=== PATIENT | female | born 1945 | race Caucasian/White ===

== ENCOUNTER 2024-07-21 08:20 | Emergency (ER) | payer OTHER, SELFPAY ==
[2024-07-21] VITALS (7 sets, daily range): BP systolic 132–165; BP diastolic 51–77; PULSE 56–119; RESP 16; TEMP 36.3; O2SAT 100
--- NOTE | 2024-07-21 09:02 | ECG_ITS ---
Test Date: 2024-07-21 08:58:26 Measurements Intervals Mcguffey Rate: 94 P: 58 MD: 199 QRS: -29 QRSD: 82 T: 66 QT: 349 QTc: 437 Interpretive Statements SINUS RHYTHM BORDERLINE ST-T WAVE ABNORMALITY- HIGH LATERAL LEADS BASELINE ARTIFACT- I, II, AVR, AVL, AVF BORDERLINE ECG No previous ECG available for comparison Electronically Signed On 07-21-2024 11:17:25 CDT by Lonnie Blevins D.O.
--- NOTE | 2024-07-21 09:09 | ED.GENADULT ---
HPI - General Adult General Chief complaint: Dizziness Stated complaint: Dizziness,Passout Source: patient Mode of arrival: ambulatory Limitations: no limitations History of Present Illness HPI narrative: Patient presents for evaluation of sick symptoms. She indicates over the last 4 days she has experienced rhinorrhea, cough, nausea, constipation and small amounts of diarrhea. Today she felt lightheaded and as though she may pass out. Her daughter brought her in for further evaluation. No fever, chills, abdominal pain, shortness of breath, chest pain. No recent sick contacts to her knowledge. She is diabetic, administering 24 units semglee in the morning and 5 units in the evening. She is also on SSI. Home blood sugars have been in 110-120 range Related Data Home Medications Medication Instructions Recorded Confirmed atorvastatin 40 mg tablet 40 mg PO DAILY 07/21/24 07/21/24 blood sugar diagnostic (Contour 07/21/24 07/21/24 Next Test Strips) blood sugar diagnostic (Contour 07/21/24 07/21/24 Next Test Strips) chlorthalidone 25 mg tablet 25 mg PO DAILY 07/21/24 07/21/24 insulin glargine-yfgn 100 unit/mL 5 unit subcut QPM 07/21/24 07/21/24 (3 mL) subcutaneous pen (Semglee (insulin glargine-yfgn) Pen) insulin glargine-yfgn 100 unit/mL 24 unit subcut QAM 07/21/24 07/21/24 (3 mL) subcutaneous pen (Semglee (insulin glargine-yfgn) Pen) insulin regular human 100 unit/mL 1 sliding scale dose subcut TID 07/21/24 07/21/24 injection solution (Novolin R Regular U-100 Insulin) lisinopril 20 2 tablet PO DAILY 07/21/24 07/21/24 mg-hydrochlorothiazide 25 mg tablet propranolol 20 mg tablet 20 mg PO DAILY 07/21/24 07/21/24 Allergies Allergy/AdvReac Type Severity Reaction Status Date / Time No Known Allergies Allergy Verified 07/21/24 08:36 Review of Systems Review of Systems: CONSTITUTIONAL: Denies fever, chills, or sweats. EYES: Denies visual changes, redness, or discharge. ENT: Reports rhinorrhea. Denies congestion, sore throat, or otalgia. CARDIOVASCULAR: Denies chest pain, palpitations, or edema. RESPIRATORY: Reports cough. Denies SOB. GASTROINTESTINAL: Reports nausea, constipation, diarrhea. Denies vomiting or abdominal pain GENITOURINARY: Denies dysuria or hematuria. SKIN: Denies rash or itching. MUSCULOSKELETAL: Denies back pain, joint pain, or myalgia. NEUROLOGIC: Reports dizziness, lightheadedness and sensation that she may pass out earlier. PSYCHIATRIC: Denies anxiety or depression. [facility] Past Medical History Medical History (Updated 07/21/24 @ 10:13 by Agapito Minaya, LUANN, ) Diabetes Hypertension Surgical History Surgical History No pertinent past surgical history Family History Family History Mother Family history non-contributory Social History Social History Smoking status: Never smoker Substance use: never Living arrangements: alone Gender identity (if verbalized by the patient): Female Sexual Orientation (if Verbalized by the Patient): Straight or Heterosexual Spiritual care concerns: No Exam Narrative: GENERAL: Well-appearing, well-nourished, and in no acute distress. HEAD: Normocephalic, atraumatic. EYES: PERRLA and EOMI. ENT: Nares clear, no rhinorrhea or epistaxis. Mucous membranes moist. Oropharynx without tonsillar hypertrophy exudate or other lesions. Bilateral TMs pearly stephenson nonbulging NECK: Supple. No adenopathy or masses. No carotid bruits or JVD CHEST: Clear to auscultation. No respiratory distress. No wheezes rales or rhonchi HEART: Regular rate and rhythm. No murmur heard. Normal peripheral pulses. ABDOMEN: Soft, nontender, nondistended, normal active bowel sounds. EXTREMITIES: Normal range of motion. No edema. SKIN: Warm, dry, no rash. LANA
--- NOTE | 2024-07-21 10:00 | PC.NURSE ---
PT HAS DRANK 2 BOTTLES OF WATER AND HAS HAD 1 EPISODE OF DIARRHEA STOOL SINCE ARRIVAL. REPORTS SHE FEELS BETTER AFTER WATER CONSUMPTION. REPEAT ORTHOSTATICS
== END 2024-07-21 10:15 | disposition home or self-care (01) ==
PROVIDERS: Emergency Provider Nurse Practitioner
DX: U07.1 COVID-19 (principal); E86.0 Dehydration; E11.9 Type 2 diabetes mellitus without complications; Z79.4 Long term (current) use of insulin; I10 Essential (primary) hypertension
CPT/HCPCS: 87426; 93005; 99213; G0463

== ENCOUNTER 2025-05-28 15:53 | Outpatient (CLI) | payer OTHER, SELFPAY ==
--- OUTSIDE RECORDS SUMMARY | 2025-05-28 15:57 | XMS_ITS | Referral Summary ---
Author Organization [facility] Address [address] [place] [address] Care Team Providers Care Community Outreach Specialist Name Role Phone No, Physician Primary Care Provider [phone] Patel Johnson MD Unavailable [phone] Allergies No known active allergies Medications amLODIPine (NORVASC) 10 mg tablet 09/28/2021 Active ascorbic acid (ascorbic acid) 500 mg tablet,chewable Take 1,000 mg by mouth daily Active atorvastatin (LIPITOR) 40 mg tablet 11/11/2021 Active calcium carbonate-vitami n D3 1,250mg (500mg elemental) - 5 mcg (200 units) per tablet Take 1 tablet by mouth 2 times daily Active glipiZIDE (GLUCOTROL) 5 mg tablet 11/11/2021 Active lisinopriL (PRINIVIL,ZESTRI L) 40 mg tablet 11/11/2021 Act sera propranoloL (INDERAL) 20 mg tablet 11/15/2021 Active Janumet 50-1,000 mg per tablet 11/11/2021 Activ e aspirin 81 mg capsule Take 81 mg by mouth daily Active Active Problems Problem Noted Date Diagnosed Date Acute parotitis 12/13/2021 Assessment & Plan (12/13/2021 3:19 PM RELISH MAKER): Start Keflex 500 mg twice daily with a meal for 7 days Continue lemon drops and increase fluid intake to 50 ounces of caffeine free and soda free fluid daily Have Dental evaluation Warm compresses to left side of face Consider MRI scan of Right 2 cm lateral to the maxilla mass Social History Tobacco Use Types Packs/Day Years Used Date Smoking Tobacco: Never Smokeless Tobacco: Never Comments No Sex and Gender Information Value Date Recorded Sex Assigned at Not on file Legal Sex Female 9:20 AM RELISH MAKER Gender Identity Not on file Sexual Orientation Not on file Last Filed Vital Signs Vital Sign Reading Time Taken Comments Blood Pressure 162/85 12/13/2021 2:41 PM RELISH MAKER Pulse 70 12/13/2021 2:41 PM RELISH MAKER Temperature 36.1 C (96.9 F) 12/13/2021 2:41 PM RELISH MAKER Respiratory Rate - - Oxygen Saturation - - Inhaled Oxygen Concentration - - Weight 60.8 kg (134 lb) 12/13/2021 2:41 PM RELISH MAKER Height 154.9 cm (5' 1) 12/13/2021 2:41 PM RELISH MAKER Body Mass Index 25.32 12/13/2021 2:41 PM RELISH MAKER Plan of Treatment Not on file Insurance [id number] [place] [address] HEALTHCARE [facility] Care Teams Community Outreach Specialist Relationship Specialty Start Date End Date No, Physician PCP - General 09/20/24 Patel Johnson MD 09/20/24
--- OUTSIDE RECORDS SUMMARY | 2025-05-28 15:57 | XMS_ITS | Clinical Summary ---
Author Organization [facility] Address [address] [place] [address] Phone Care Team Providers Care Senior Accounting Specialist Name Role Phone Patel Johnson MD Primary Care Provider [phone] Allergies No known active allergies Medications AMLODIPINE BESYLATE PO Active GLIMEPIRIDE PO Activ e METOPROLOL TARTRATE PO Active ASPIRIN PO Active CALCIUM-VITAMIN D PO Active pravastatin (PRAVACHOL) 40 MG Tablet TAKE ONE TABLET BY MOUTH ONCE DAILY. 90 Tab 1 10/28/2015 Active lisinopril (PRINIVIL, ZESTRIL) 40 MG Tablet TAKE ONE TABLET BY MOUTH ONCE DAILY. 90 Tab 1 10/28/2015 Active JANUMET 50-1000 MG Tablet TAKE ONE TABLET BY MOUTH TWICE DAILY. 180 Tab 1 10/28/2015 Active Active Problems Problem Noted Date Diagnosed Date HTN (hypertension) High cholesterol DM2 (diabetes mellitus, type 2) Immunizations Immunization Administration Dates Next Due Influenza Vaccine greater than 3 yrs 11/20/2013 Pneumococcal Vaccine Adult - 23 Valent 4 Social History Tobacco Use Types Packs/Day Years Used Date Smoking Tobacco: Never Assessed Comments No Sex and Gender Information Value Date Recorded Sex Assigned at Not on file Legal Sex Female 10:15 PM CDT Gender Identity Not on file Sexual Orientation Not on file Last Filed Vital Signs Vital Sign Reading Time Taken Comments Blood Pressure 160/41 09/27/2024 8:45 AM CUTTING INSPECTOR Pulse 54 09/27/2024 8:59 AM CUTTING INSPECTOR Temperature 36.4 C (97.6 F) 09/27/2024 8:38 AM CUTTING INSPECTOR Respiratory Rate 16 09/27/2024 8:59 AM CUTTING INSPECTOR Oxygen Saturation 100% 09/27/2024 8:59 AM CUTTING INSPECTOR Inhaled Oxygen Concentration - - Weight 61 kg (134 lb 7.7 oz) 09/27/2024 8:38 AM CUTTING INSPECTOR Height 154.9 cm (5' 1) 09/27/2024 8:55 AM CUTTING INSPECTOR Body Mass Index 25.41 09/27/2024 8:38 AM CUTTING INSPECTOR Plan of Treatment Health Maintenance Due Date Last Done Comments Diabetes: Eye Exam 1945 Diabetes: Foot Exam 1945 Hepatitis C Virus (HCV) Screening 1944 Diabetes: Nephropathy Screening 1962 Zoster Immunization (1 of 2) 1994 Diabetes: Hemoglobin A1c 03/05/2014 09/04/2013 Pneumococcal Immunization (50+ years) (2 of 2 - PCV) 11/20/2014 11/20/2013, 04/07/2010 DEXA Bone Density 09/18/2015 09/18/2013 Respiratory Syncytial Virus (RSV) Immunization (Adult) (1 - 1-dose 75+ series) 2019 SARS-COV-2 Immunization ( - season) 2024 04/23/2021, 04/02/2021 Influenza Immunization (#1) 07/21/202509/20, 08/26/2020, 08/11/2015, Additional history exists Pneumococcal Immunization Combined Discontinued 11/20/2013, 04/07/2010 DTaP/Tdap/Td Immunization Discontinued 08/12/2015 TdaP Immunization Completed 08/12/2015 Hepatitis B Immunization Aged Out No longer eligible based on patient's age to complete this topic Human Papillomavirus (HPV) Immunization Aged Out No longer eligible based on patient's age to complete this topic Meningococcal Immunization (ACWY) Aged Out No longer eligible based on patient's age to complete this topic Rotavirus Immunization Aged Out No lo nger eligible based on patient's age to complete this topic Insurance MEDICARE [employer] Care Teams Senior Accounting Specialist Relationship Specialty Start Date End Date Patel Johnson MD [address] [place] [address] PCP - General Internal Medicine 09/27/24
--- OUTSIDE RECORDS SUMMARY | 2025-05-28 15:57 | XMS_ITS | Clinical Summary ---
Author Organization [facility] Address [address] [place] [address] Care Team Providers Care Radiological Technician Name Role Phone No, Physician Primary Care Provider [phone] Patel Johnson MD Unavailable Allergies No known active allergies Medications amLODIPine [...] 12/13/2021 Assessment & Plan (12/13/2021 3:19 PM FLIGHT READINESS TECHNICIAN): Start Keflex 500 mg twice daily with a meal for 7 days Continue lemon drops and increase fluid intake to 50 ounces of caffeine free and soda free fluid daily Have Dental evaluation Warm compresses to left side of face Consider MRI scan of Right 2 cm lateral to the maxilla mass Surgical History Surgery Date Site/Laterality Comments SKIN CANCER EXCISION Left sided nare Medical History Medical History Date Comments Skin cancer of nose 06/20/2020 Social History Tobacco Use Types Packs/Day Years Used Date Smoking Tobacco: Never Smokeless Tobacco: Never Comments No Sex and Gender Information Value Date Recorded Sex Assigned at Not on file Legal Sex Female 9:20 AM FLIGHT READINESS TECHNICIAN Gender Identity Not on file Sexual Orientation Not on file Obstetrics History Para Term AB IAB SAB Ectopic Multiple Livin g Live Births 2 2 2 Date Outcome GA Total Labor Labor/2nd/3rd Weight Sex Type Anes PTL Rosanne A1 A5 Name Clin Term Term Last Filed Vital Signs Vital Sign Reading Time Taken Comments Blood Pressure 162/85 12/13/2021 2:41 PM FLIGHT READINESS TECHNICIAN Pulse 70 12/13/2021 2:41 PM FLIGHT READINESS TECHNICIAN Temperature 36.1 C (96.9 F) 12/13/2021 2:41 PM FLIGHT READINESS TECHNICIAN Respiratory Rate - - Oxygen Saturation - - Inhaled Oxygen Concentration - - Weight 60.8 kg (134 lb) 12/13/2021 2:41 PM FLIGHT READINESS TECHNICIAN Height 154.9 cm (5' 1) 12/13/2021 2:41 PM FLIGHT READINESS TECHNICIAN Body Mass Index 25.32 12/13/2021 2:41 PM FLIGHT READINESS TECHNICIAN Plan of Treatment Health Maintenance Due Date Last Done Comments Depression Screening 1944 Fall Risk Assessment 1944 Osteoporosis Screening-Bone Density Scan 1944 Hepatitis B Screening 1962 Zoster Vaccine (1 of 2) 1994 Well Visit 65+ 2009 Pneumococcal vaccine 65+ (2 of 2 - PCV) 11/20/2014 11/20/2013, 04/07/2010 Influenza Vaccine (#1) 07/21/2025201 6, 08/11/2015, 11/20/2013, Additional history exists DTaP/Tdap/Td Vaccine (2 - Td or Tdap) 08/12/2025 08/12/2015 Insurance [facility] Care Teams Radiological Technician Relationship Specialty Start Date End Date No, Physician PCP - General 09/20/24 Patel Johnson MD 09/20/24
--- OUTSIDE RECORDS SUMMARY | 2025-05-28 15:57 | XMS_ITS | Clinical Summary ---
Author Organization [facility] Address [address] [place] [address] Care Team Providers Care Broomcorn Thresher Name Role Phone Lev Whittaker MD Primary Care Provider [phone] Allergies No known active allergies Medications insulin glargine (LANTUS) 100 UNIT/ML injectionIndicatio ns:Type 2 Diabetes Mellitus Inject 30 Units under the skin in the morning. Indications: Type 2 Diabetes. 10 mL 10/25/20 24 Active acetaminophen (TYLENOL) 500 MG tablet Take 1 tablet (500 mg total) by mouth every 8 (eight) hours as needed for mild pain or headaches. 10/24/20 24 Active amLODIPine (NORVASC) 5 MG tablet Take 1 tablet (5 mg total) by mouth in the morning. 30 tablet 10/25/20 24 Active aspirin 81 MG chewable tabletIndications: CVA Chew 1 tablet (81 mg total) in the morning. Indications: CVA. 10/25/20 24 Active atorvastatin (LIPITOR) 40 MG tablet Take 1 tablet (40 mg total) by mouth nightly. 30 tablet 10/24/20 24 Active carvedilol (COREG) 6.25 MG tablet Take 1 tablet (6.25 mg total) by mouth 2 (two) times a day with Breakfast and Dinner. 60 tablet 10/24/20 24 Active clopidogrel (PLAVIX) 75 MG tabletIndications: Cerebrovascular Accident Take 1 tablet (75 mg total) by mouth in the morning. Indications: Cerebrovascular Accident or Stroke. 30 tablet 10/25/20 24 Active insulin lispro 100 UNIT/ML injectionIndicatio ns:Type 2 Diabetes Mellitus Inject 8 Units under the skin in the morning and 8 Units at noon and 8 Units in the evening. Inject before meals. Indications: Type 2 Diabetes. 10 mL 10/24/20 24 Active lidocaine (LIDOCARE) 4 % patch patch Place 1 patch on the skin in the morning. 10/25/20 24 Active HYDROcodone-acetam inophen (NORCO) 5-325 MG per tabletIndications: acute on chronic musculoskeletal back pain Take 1 tablet by mouth every 4 (four) hours as needed for moderate pain or severe pain (acute on chronic musculoskeletal back pain) Indications: acute on chronic musculoskeletal back pain. 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 Monthly or less 10/02/2024 Q2: How many drinks containi ng alcohol do you have on a typical day when you are drinking? 1 or 2 10/02/2024 Q3: How often do you have si x or more drinks on one occasion? Never 10/02/2024 [facility] - Occupational Stress Questionnaire Answer Date Recorded Do you feel stress - tense, restless, nervous, or anxious, or unable to sleep at night because your mind is troubled all the time - these days? Not at all 10/25/2024 Domestic Abuse Assessment Answer Date R ecorded Do you feel safe in your relationships at home? Yes 10/02/2024 Physical Abuse Denies 10/02/2024 [facility] - Type of Abuse Not on file 10/02/2024 HRSN Domestic Abuse - Time Frame Not on file 10/02/2024 HRSN Domestic Abuse - Signs and Symptoms Not on file 10/02/2024 Verbal Abuse Denies 10/02/2024 HRSN Domestic Abuse - Reported To Not on file 10/02/2024 [facility] Transportation Source Answer Da te Recorded Has lack of transportation k ept you from medical appointments or from getting medications? No 10/24/2024 Has lack of transportation k ept you from meetings, work, or from getting things needed for daily living? No 10/24/2024 HRSN Depression PHQ-2 Answer Date Recor ded Feeling down, depressed, or hopeless 0 10/25/2024 Little interest or pleasure in doing things 0 10/25/2024 Comments Unknown Sex and Gender Information Value Date Recorded Sex Assigned at Not on file Legal Sex Female 11:49 AM EST Gender Identity Not on file Sexual Orientation Not on file Last Filed Vital Signs Vital Sign Reading Time Taken Comments Blood Pressure 137/64 10/25/2024 9:45 AM PIPE OUT WORKER Pulse 64 10/25/2024 9:45 AM PIPE OUT WORKER Temperature 36.1 C (97 F) 10/25/2024 7:04 AM PIPE OUT WORKER Respiratory Rate 18 10/25/2024 7:04 AM PIPE OUT WORKER Oxygen Saturation 100% 10/25/2024 9:45 AM PIPE OUT WORKER Inhaled Oxygen Concentration - - Weight 59.4 kg (131 lb) 10/02/2024 12:55 AM PIPE OUT WORKER Height 167.6 cm (5' 6) 10/02/2024 12:55 AM PIPE OUT WORKER Body Mass Index 21.14 10/02/2024 12:55 AM PIPE OUT WORKER Plan of Treatment Not on file Advance Directives * Full Resuscitation (Latest Code Status on File) Date Activated Date Inactivated Comments 10/02/2024 7:24 AM 10/25/2024 6:31 PM Question Answer Comments I have discussed this order with the patient or his/her surrogate and have received informed consent. Yes Care Teams Broomcorn Thresher Relationship Specialty Start Date End Date Lev Whittaker MD [address] [place] [address] PCP - General 10/03/24
--- OUTSIDE RECORDS SUMMARY | 2025-05-28 15:57 | XMS_ITS | Clinical Summary ---
Author Organization [facility] Address [address] [place] [address] Care Team Providers Care [employer] Member Name Role Phone Unavailable Primary Care Provider Unavailabl e Allergies No known active allergies Medications aspirin (TIMI) 81 mg Oral Tab Take 81 mg by mouth daily. Active calcium-vitamin D3 (OS-FILIPPO 500+D) 500 mg(1,250mg) -200 unit Oral tablet Take 1 Tab by mouth every 12 hours. Active lisinopril (PRINIVIL) 40 mg Oral tablet TAKE ONE TABLET BY MOUTH EVERY DAY 90 Tab 2 05/27/2013 Active amLODIPine (NORVASC) 10 mg Oral tablet TAKE ONE TABLET BY MOUTH EVERY DAY 90 Tab 2 05/27/2013 Active pravastatin (PRAVACHOL) 40 mg Oral tablet TAKE ONE TABLET BY MOUTH EVERY DAY LATE 90 Tab 2 07/10/2013 Active ascorbic acid (VITAMIN C) 500 mg Oral tablet Take 1,000 mg by mouth daily. Active cyclobenzaprine (FLEXERIL) 10 mg Oral tablet Take 0.5-1 Tabs by mouth every 8 hours as needed for Spasm. 30 Tab 1 09/03/2013 Active GLUCOSAM SUL NA/CHONDR ROBERT A NA (GLUCOSAMINE & CHONDROIT SUL.NA ORAL) Take by mouth. Take as directed daily; pt takes 1500/1200 bid Active JANUMET 50-1,000 mg tablet TAKE TABLET BY MOUTH TWICE DAILY WITH MEALS 180 Tab 0 05/05/2014 Active glimepiride (AMARYL) 4 mg tablet TAKE TWO TABLETS BY MOUTH ONCE DAILY IN THE ORACLE HRMS DEVELOPER 180 Tab 0 05/05/2014 Active metoprolol succinate (TOPROL XL) 100 mg Extended Release 24 hour tablet Take 1 Tab by mouth daily. 90 Tab 0 06/11/2014 Active Active Problems Problem Noted Date Diagnosed Date Trigger finger (acquired) 09/25/2013 Hyperlipidemia 02/22/2011 Vitamin B12 deficiency (dietary) anemia 04/07/20 10 Vitamin D deficiency 01/08/2010 Type II or unspecified type diabetes mellitus without mention of complication, not stated as uncontrolled 01/01/2010 HTN (hypertension), benign 01/01/2010 Anemia 01/01/2010 Osteoporosis 01/01/2010 Overview (01/01/2010): 09/08/09 - T score -2.57 Resolved Problems Problem Noted Date Diagnosed Date Resolved Date Vitamin B12 deficiency (dietary) anemia 01/08/2010 04/07/2010 Immunizations Immunization Administration Dates Next Due (PNEUMOVAX 23)(50 YRS UP) PN EUMOCOCCAL POLYSACCHARIDE (PPV23) 0.5 ML, IM 04/07/2010 Influenza Seasonal Unspecified Formulation IM Influenza Vaccine Split 3+ Yrs IM 08/17/2012 Influenza Vaccine Split 3+ Yrs PF IM 09/03/2013 Family History Medical History Relation Name Comments Healthy Daughter Hypertension Maternal Grandmother Other Maternal Grandmother arthrit is Lung Cancer Sister Healthy Son Breast Cancer Neg Hx Cancer Neg Hx Ovarian Cancer Neg Hx Relation Name Status Comments Daughter Alive Maternal Grandmother Sister Alive Son Alive Social History Tobacco Use Types Packs/Day Years Used Date Smoking Tobacco: Never Smokeless Tobacco: Never Alcohol Use Standard Drinks/Week Comments No 0 (1 standard drink = 0.6 oz pur e alcohol) Comments No Sex and Gender Information Value Date Recorded Sex Assigned at Not on file Legal Sex Female 3:27 AM TRAUMA MANAGER Gender Identity Not on file Sexual Orientation Not on file Occupation Industry Job Start Date Job End Date Not on file Not on file Not on file Not on file Last Filed Vital Signs Vital Sign Reading Time Taken Comments Blood Pressure 184/75 11/06/2013 1:05 PM TRAUMA MANAGER Pulse 68 11/06/2013 1:05 PM TRAUMA MANAGER Temperature 37.1 C (98.7 F) 06/05/2013 1:18 PM CDT Respiratory Rate 16 07/19/2012 9:36 PM CDT Oxygen Saturation 100% 07/19/2012 9:36 PM CDT Inhaled Oxygen Concentration - - Weight 61.2 kg (135 lb) 11/06/2013 1:05 PM TRAUMA MANAGER Height 154.9 cm (5' 1) 11/06/2013 1:05 PM TRAUMA MANAGER Body Mass Index 25.51 11/06/2013 1:05 PM TRAUMA MANAGER Plan of Treatment Health Maintenance Due Date Last Done Comments DTAP/TDAP/TD VACCINES (1 - Tdap) 1963 ZOSTER VACCINE (1 of 2) 1994 PNEUMOCOCCAL VACCINE 50+ YEA RS (2 of 2 - PCV) 04/07/2011 04/07/2010 DIABETES ANNUAL RETINAL EXAM 12/28/201206/2012, 07/21/2010, 01/13/2010 COLORECTAL SCREENING 05/30/2014 05/30/2010, 05/21/20 DIABETES ANNUAL FOOT EXAM 06/05/20142012, 02/02/2011, 01/01/2010 DIABETES MICROALBUMIN ANNUAL SCREEN 09/04/2014 09/04/2013, 10/03/2012, 02/21/2011, Additional history exists LDL CHOLESTEROL ANNUAL 09/04/2014 3, 10/03/2012, 07/06/2011, Additional history exists OSTEOPOROSIS SCREENING 09/18/2018 09/18/2013, 2008 RSV VACCINE (60+ or ) (1 - 1-dose 75+ series) 2019 DIABETES HBA1C Q 6 MONTHS 03/27/20252023, 09/04/2013, 10/03/2012, Additional history exists INFLUENZA VACCINE (#1) 2025 3, 09/04/2012, 08/17/2012 Procedures Procedure Name Priority Date/Time Associated Diagnosis Comments XR DEXA BONE DENSITY AXIAL 1 OR MORE SITES Routine 09/18/2013 2:50 PM CDT Postmenopausal MICROALBUMIN/CREATI NINE RATIO, RANDOM UR Routine 09/04/2013 8:44 AM CDT Type II or unspecified type diabetes mellitus without mention of complication, uncontrolled Other and unspecified hyperlipidemia B12 deficiency LIPID PANEL Routine 09/04/2013 8:35 AM CDT Other and unspecified hyperlipidemia Type II or unspecified type diabetes mellitus without mention of complication, uncontrolled B12 deficiency HEMOGLOBIN A1C Routine 09/04/2013 8:35 AM CDT Type II or unspecified type diabetes mellitus without mention of complication, uncontrolled Other and unspecified hyperlipidemia B12 deficiency from Last 3 Months or Most Recently Relevant to Health Maintenance Results * XR DEXA BONE DENSITY AXIAL 1 OR MORE SITES (09/18/2013 2:50 PM CDT) Anatomical Region Laterality Modality Digital Radiogra phy 09/18/2013 2:40 PM CDT Narrative 09/18/2013 3:29 PM CDT Examination: Bone Density Study (DXA) Clinical History: 68 year old postmenopausal female year-old. Findings: Lumbar Spine ( L1-L4 ) T-score -1.4 0.89 g/sq cm Left femoral neck T-score -1.3 0.71 g/sq cm Right femoral neck T-score -1.3 0.70 g/sq cm IMPRESSION Osteopenic bone mineral densities. Comments: None. Detailed report placed in [facility]. Dictated by Dr. Holden Bautista MD Dictated from Location 1. Procedure Note Holden Bautista MD - 09/18/2013 Examination: Bone Density Study (DXA) Clinical History: 68 year old postmenopausal female year-old. Findings: Lumbar Spine ( L1-L4 ) T-score -1.4 0.89 g/sq cm Left femoral neck T-score -1.3 0.71 g/sq cm Right femoral neck T-score -1.3 0.70 g/sq cm IMPRESSION Osteopenic bone mineral densities. Comments: None. Detailed report placed in [employer]. Dictated by Dr. Holden Bautista MD Dictated from Location 1. us Naima Monterroso MD DIAGNOSTIC IMAGING ORDERABLE S Final Result * (ABNORMAL) MICROALBUMIN/CREATININE RATIO, RANDOM UR (09/04/2013 8:44 AM CDT) MICROALBUMIN, URINE 18.7 mg/dL 09/04/2013 6:58 PM CDT [facility] CREATININE, URINE 47 29 - 226 mg/dL 09/04/2013 6:58 PM CDT [facility] MICROALBUMIN/ CREAT RATIO, UR 397.9(H) 0.0 - 29.0 mg/g Creatinine 09/04/2013 6:58 PM CDT [facility] - [facility] DR Urine specimen (specimen) Collection / Unknown 09/04/2013 8:44 AM CDT 09/04/2013 5:18 PM CDT Naima Monterroso MD URINE ORDERABLES Final Resul t Performing Organization Address City/[facility]/ZIP Co de Phone Number [facility] [address] [facility] # [id number] [phone] [place] [address] * (ABNORMAL) HEMOGLOBIN A1C (09/04/2013 8:35 AM CDT) HEMOGLOBIN A1C 7.5(H) 4.2 - 5.8 % 09/04/2013 6:43 PM CDT [facility] - [facility] DR GANDHI. CARON GLUCOSE, A1C 169 mg/dL 09/04/2013 6:43 PM CDT [facility] Blood specimen (specimen) Collection / Unknown 09/04/2013 8:35 AM CDT 09/04/2013 5:18 PM CDT Naima Monterroso MD CHEMISTRY ORDERABLES Final R esult Performing Organization Address [facility] de Phone Number [facility] Ludwig # [id number] [phone] [place] [address] * (ABNORMAL) LIPID PANEL (09/04/2013 8:35 AM CDT) CHOLESTEROL 217(H) 100 - 200 mg/dL 09/04/2013 6:24 PM CDT [facility] TRIGLYCERIDE 137 30 - 200 mg/dL 09/04/2013 6:24 PM CDT [facility] HDL 57 32 - 96 mg/dL 09/04/2013 6:24 PM CDT [facility] LDL CALCULATED 133(H) 0 - 130 mg/dL 09/04/2013 6:24 PM CDT [facility] Blood specimen (specimen) Collection / Unknown 09/04/2013 8:35 AM CDT 09/04/2013 5:18 PM CDT Narrative [facility] - 09/04/2013 6:24 PM CDT TOTAL CHOLESTEROL mg/dL Desirable <200 Borderline high 200-239 High >=240 TRIGLYCERIDES mg/dL Normal <150 Borderline high 150-199 High 200-499 Very high >=500 HDL CHOLESTEROL mg/dL Low <40 Normal 40-60 Desirable >60 LDL CHOLESTEROL mg/dL Optimal <100 Low risk 100-129 Borderline high 130-159 High 160-189 Very high >=190 Based on AHA/NCEP Guidelines us Naima Monterroso MD CHEMISTRY ORDERABLES Final R esult [facility] [address] Ludwig # [id number] [address] [place] [address] from Last 3 Months or Most Recently Relevant to Health Maintenance Insurance MEDICARE PART A AND B [employer] MEDICARE SUPP AESSI Advance Directives For more information, please contact: [phone] * Full Code (Latest Code Status on File) Date Activated Date Inactivated Comments 05/21/2010 7:17 AM 05/22/2010 2:32 AM
--- OUTSIDE RECORDS SUMMARY | 2025-05-28 15:57 | XMS_ITS | Clinical Summary ---
Author Organization [facility] Address [address] [place] [address] Care Team Providers Care Staffing And Scheduling Coordinator Name Role Phone Lev Whittaker MD Primary Care Provider [phone] Source Comments [facility],non-owned Affiliates and Associated Physician Practices is amultiple site organization consisting of ambulatory clinics and hospital sitesin [place], [place], [place] and [place]. This disclosure is being madepursuant to the Care Everywhere program and may not contain all information available regarding this patient. Last updated 18.[employer] Allergies No known active allergies Medications * Be aware that medications may not be up to date on this document. Alwaysverify current medications with the patient. lisinopril (PRINIVIL; ZESTRIL) 40 MG tablet Take 1 (one) tablet by mouth once daily Active atorvastatin (Lipitor) 40 MG tablet Take 1 (one) tablet by mouth at bedtime Active insulin glargine (Lantus/Semglee ) 100 units/ml injection Inject 24 (twenty four) Units subcutaneously every morning Active acetaminophen (Tylenol) 325 MG tablet Take 2 (two) tablets by mouth every 4 hours as needed Maximum allowable Acetaminophen amount = 4 Grams (4000 mg) / 24 hours. 10/01/20 24 Active aspirin (Aspirin) 81 MG chew tablet Take 1 (one) tablet by mouth once daily 10/02/20 24 Active carvedilol (Coreg) 25 MG tablet Take 1 (one) tablet by mouth 2 times daily with morning and evening meal 10/01/20 Active lidocaine (Lidoderm) 5 % patch Apply 1 (one) patch to skin every 24 hours Apply patch to most painful area and remove after 12 hours. May reapply a new patch 12 hours later. 10/02/20 Active bisacodyl (Dulcolax) 10 MG suppository Insert 1 (one) suppository into the rectum once daily as needed for Constipation 10/01/20 Active senna-docusate (Senokot-S) 8.6-50 MG tablet Take 1 (one) tablet by mouth once daily 10/02/20 Active Additional Information Patient not taking.Reported on 11/05/2024 clopidogrel (plaVIX) 75 MG tablet Take 1 (one) tablet by mouth once daily 10/02/20 Active insulin lispro (HumaLOG) 100 UNIT/ML vial Inject 8 (eight) Units subcutaneously 10/24/20 Active amLODIPine (Norvasc) 5 MG tablet Take 1 (one) tablet by mouth once daily Active Active Problems Problem Noted Date Diagnosed Date High cholesterol 11/07/2024 Hemiplegia and hemiparesis f ollowing cerebral infarction affecting left non-dominant side 10/11/2024 Essential hypertension 10/11/2024 Internal carotid artery stenosis 10/11/2024 Neurogenic dysphagia 10/11/2024 Cerebrovascular accident (CVA), unspecified mech anism 09/27/2024 Hypoxia 09/27/2024 Acute parotitis 12/13/2021 Trigger finger, acquired 09/25/2013 Vitamin B12 deficiency (dietary) anemia 04/07/20 10 Vitamin D deficiency 01/08/2010 Anemia 01/01/2010 Osteoporosis 01/01/2010 Overview (11/07/2024): 09/08/09 - T score -2.57 Type 2 diabetes mellitus 01/01/2010 Tachycardia 12/22/2009 Social History Tobacco Use Types Packs/Day Years Used Date Smoking Tobacco: Never Smokeless Tobacco: Never Tobacco Cessation:Counseling Given: Not Answered Alcohol Use Standard Drinks/Week Comments Yes 1 (1 standard drink = 0.6 oz pur e alcohol) rare- once a year AUDIT-C Answer Date Recorded Q1: How often do you have a drink containing alc ohol? Monthly or less 09/27/2024 Q2: How many drinks containi ng alcohol do you have on a typical day when you are drinking? 1 or 2 09/27/2024 Q3: How often do you have si x or more drinks on one occasion? Never 09/27/2024 Overall Financial Resource Strain (CARDIA) Answe r Date Recorded How hard is it for you to pa y for the very basics like food, housing, medical care, and heating? Not hard at all 09/27/2024 PHQ-2 Answer Date Recorded Patient Health Questionnaire-2 Score 0 10/01/2024 [facility] - Occupational Stress Questionnaire Answer Date Recorded Do you feel stress - tense, restless, nervous, or anxious, or unable to sleep at night because your mind is troubled all the time - these days? Not at all 09/27/2024 Hunger Vital Sign Answer Date Recorded Within the past 12 months, y ou worried that your food would run out before you got the money to buy more. Never true 09/27/20 24 Within the past 12 months, t he food you bought just didn't last and you didn't have money to get more. Never true 09/27/2024 PRAPARE - Transportation Answer Date Re corded In the past 12 months, has l ack of transportation kept you from medical appointments or from getting medications? No 06/2024 In the past 12 months, has l ack of transportation kept you from meetings, work, or from getting things needed for daily living? No 09/27/2024 Housing Stability Vital Sign Answer Neil e Recorded In the last 12 months, was t here a time when you were not able to pay the mortgage or rent on time? No 09/27/2024 In the past 12 months, how m any times have you moved where you were living? 0 09/27/2024 At any time in the past 12 m [facility], were you homeless or living in a [facility] (including now)? No 09/27/2024 Education Answer Date Recorded What is the highest level of school you have completed or the highest degree you have received? Some college, no degree 09/27/2024 Comments Unknown Sex and Gender Information Value Date Recorded Sex Assigned at Not on file Legal Sex Female 7:52 AM PANEL MACHINE TENDER Gender Identity Not on file Sexual Orientation Not on file Last Filed Vital Signs Vital Sign Reading Time Taken Comments Blood Pressure 135/97 11/18/2024 5:45 PM PANEL MACHINE TENDER Pulse 95 11/18/2024 5:45 PM PANEL MACHINE TENDER Temperature 36.7 C (98.1 F) 10/01/2024 7:50 PM PANEL MACHINE TENDER Respiratory Rate 16 11/18/2024 5:45 PM PANEL MACHINE TENDER Oxygen Saturation 92% 11/18/2024 5:45 PM PANEL MACHINE TENDER Inhaled Oxygen Concentration - - Weight 56.8 kg (125 lb 3.2 oz) 11/18/2024 10:36 AM PANEL MACHINE TENDER Height 154.9 cm (5' 1) 11/18/2024 10:36 AM PANEL MACHINE TENDER Body Mass Index 23.66 11/18/2024 10:36 AM PANEL MACHINE TENDER Plan of Treatment Health Maintenance Due Date Last Done Comments MEDICARE AWV 12 MONTHS 1945 DTAP/TDAP/TD VACCINES (1 - Tdap) 1963 PNEUMOCOCCAL VACCINE 50+ (1 of 2 - PCV) 1963 ZOSTER VACCINE (1 of 2) 1994 Respiratory Syncytial Virus (RSV) Vaccine Pt: or over 60 yrs (1 - 1-dose 75+ series) 2019 COVID-19 VACCINE ( - season) 2024 DIABETES RETINOPATHY SCREENING 11/07/2024 DIABETES-FOOT EXAM WITH MONOFILAMENT 11/07/2024 DEPRESSION SCREENING 11/20/2024 10/04/2024 DIABETES - URINE PROTEIN SCREENING 11/20/2024 09/04/2013 DIABETES-HGB A1C 03/27/2025 09/27/2024, 09/04/2013 INFLUENZA VACCINE (Season Ended) 2025 11/20/2013, 09/03/2013, 09/04/2012, Additional history exists DIABETES-SERUM CREATININE 11/18/20252023, 10/22/2024, 10/22/2024, Additional history exists BONE DENSITY TESTING Completed 09/18/2013 HEPATITIS B VACCINE Aged Out No longe r eligible based on patient's age to complete this topic HIB VACCINE Aged Out No longer eligi ble based on patient's age to complete this topic HPV VACCINE Aged Out No longer eligi ble based on patient's age to complete this topic MENINGOCOCCAL (Group B) VACCINE SHARED DECISION-MAKING Aged Out No longer eligible based on patient's age to complete this topic MENINGOCOCCAL GROUPS A/C/Y/W VACCINE Aged Out No longer eligible based on patient's age to complete this topic Procedures Procedure Name Priority Date/Time Associated Diagnosis Comments BASIC METABOLIC PANEL (CALCIUM TOTAL) COCO 11/18/2024 10:39 AM PANEL MACHINE TENDER Cerebrovascular accident (CVA), unspecified mechanism Carotid stenosis, right HEMOGLOBIN A1C Add on 09/27/2024 12:33 PM PANEL MACHINE TENDER from Last 3 Months or Most Recently Relevant to Health Maintenance Results * (ABNORMAL) BASIC METABOLIC PANEL (CALCIUM TOTAL) (11/18/2024 10:39 AM PANEL MACHINE TENDER) Glucose 131(H) 70 - 99 mg/dL 11/18/2024 11:20 AM [facility] Sodium 141 136 - 145 mmol/L 11/18/2024 11:20 AM [facility] Potassium 4.6 3.5 - 5.1 mmol/L 11/18/2024 11:20 AM [facility] Chloride 111(H) 98 - 107 mmol/L 11/18/2024 11:20 AM [facility] CO2 24 22 - 29 mmol/L 11/18/2024 11:20 AM [facility] Calcium 9.8 8.4 - 10.4 mg/dL 11/18/2024 11:20 AM [facility] Anion Gap 6 6 - 16 mmol/L 11/18/2024 11:20 AM [facility] BUN 26 7 - 26 mg/dL 11/18/2024 11:20 AM [facility] Creatinine 1.20(H) 0.57 - 1.11 mg/dL 11/18/2024 11:20 AM [facility] eGFR by CKD-EPI 46(L) >=90 mL/min/1.7 3 m2 11/18/2024 11:20 AM [facility] Blood BLOOD SPECIMEN / Unknown Venipuncture / Unknown 11/18/2024 10:39 AM PANEL MACHINE TENDER 11/18/2024 11:03 AM PANEL MACHINE TENDER us Dwayne Frye MD LAB - CHEMISTRY ORDERABLES F inal Result Performing Organization Address City/State/[facility] Co de Phone Number [facility] [address] [place] [address] * (ABNORMAL) HEMOGLOBIN A1C (09/27/2024 12:33 PM PANEL MACHINE TENDER) Hemoglobin A1c 7.7(H) <5.7 % 09/27/2024 1:11 PM PANEL MACHINE TENDER [facility] Estimated Average Glucose 174 mg/dL 09/27/2024 1:11 PM PANEL MACHINE TENDER [facility] Blood BLOOD SPECIMEN / Unknown Venipuncture / Unknown 09/27/2024 12:33 PM PANEL MACHINE TENDER 09/27/2024 12:40 PM PANEL MACHINE TENDER Narrative [facility] - 09/27/2024 1:11 PM PANEL MACHINE TENDER HbA1c Interpretation: Normal: < 5.7% Pre-diabetes: 5.7-6.4% Diabetes: Equal to or greater than 6.5% Test results diagnostic of diabetes should be repeated for confirmation. Treatment target values recommended by ADA and other clinical organizations should be used to evaluate metabolic control in patients. This test should not replace glucose testing for patients with Type 1 diabetes, pediatric patients, or women. Falsely low HbA1c results may be observed in patients with clinical conditions that shorten erythrocyte life span or decrease mean erythrocyte age such as the presence of unstable hemoglobin variants, elevated hemoglobin F level or other causes of hemolytic anemia. HbA1c may not accurately reflect glycemic control when clinical conditions that affect erythrocyte survival are present. Severe Iron deficiency anemia may yield falsely high results. Hemoglobin A1c assay should not be used to diagnose or monitor diabetes in patients with malignancy, recent blood transfusion, chronic kidney or liver disease. This method may yield falsely low results when hemoglobin (HbF) exceeds 5% in the specimen. The Ledbetter Alinity assay for the measurement of HbA1c is a National Glycohemoglobin Standardization Program (NGSP) certified method. Radha Arnold APRN-DISCHARGING MACHINE OPERATOR LAB - CHEMISTRY ORDERAB LES Final Result Performing Organization Address [facility] Co de Phone Number [facility] [address] [place] [address] from Last 3 Months or Most Recently Relevant to Health Maintenance Insurance [facility] MEDIC[facility] Advance Directives * Full Code (Latest Code Status on File) Date Activated Date Inactivated Comments 10/02/2024 11:46 AM 10/25/2024 4:26 PM * Full Code Date Activated Date Inactivated Comments 09/27/2024 10:20 AM 10/02/2024 12:46 AM Care Teams Staffing And Scheduling Coordinator Relationship Specialty Start Date End Date Lev Whittaker MD [address] [facility] [place] [address] PCP - General Internal Medicine 09/29/24
[2025-05-28 16:29] LABS: Alanine Aminotransferase 14 U/L (6-35); Aspartate Amino Transferase 23 U/L (14-36)
== END 2025-05-28 15:54 | disposition home or self-care (01) ==
LOC: ANHLAB 15:55
PROVIDERS: PCP Family Medicine; Visit Provider Podiatrist Foot & Ankle Surgery
DX: B35.1 Tinea unguium (principal)
CPT/HCPCS: 36415; 84450; 84460